=== PATIENT | female | born 1950 | race Caucasian/White ===

== ENCOUNTER → 2019-04-11 14:38 | Outpatient (CLI) | payer MEDICARE, SELFPAY ==
--- NOTE | 2019-04-11 | DI.ECHO.S_ITS ---
[place] +---------+ [facility] +---------+ : : [address] : : : [address] : : : : [id number] : : : : Phone: [phone]+ Echocardiogram Report + + :Name: NESTOR HOWELL Study Date: 04/11/2019 Height: 66 in : :[facility] Exam Location: IS Weight: 225 lb : : Gender: Female BSA: 2.1 m2 : :: 1950 Age: 68 yrs BP: 166/85 mmHg: :Reason For Study: MURMUR : : Performed By: Garfield Lopez : :Referring: TAMARA REHMAN A : + + Interpretation Summary Normal sinus rhythm. Normal LV size, wall thickness. There is subtle mid-inferolateral and mid- inferior hypokinesis, which in the right clinical setting could be due to either small area of ischemia or small prior infact. Preserved EF with ejection fraction of 60-65%. Moderate LA enlargement. Otherwise normal chamber sizes. Aortic sclerosis (epsecially involving thickened non-coronary leaflet of the aortic valve). There is mild aortic stenosis and mild associated aortic regurgitation. Otherwise no significant valvular abnormalities. No prior study available for comparison. Procedure: A two-dimensional transthoracic echocardiogram with color flow and Doppler was performed. The study quality was technically adequate. There is no prior echocardiogram noted for this patient. The patient was in normal sinus rhythm during the exam. Left Ventricle: The left ventricle is normal in size. There is normal left ventricular wall thickness. The ejection fraction is estimated to be 60-65%. Diastolic parameters suggest a pseudonormalization pattern, consistent with probable elevated filling pressures. Right Ventricle: The right ventricle is normal in size and function. Atria: The left atrium is moderately dilated. Right atrial size is normal. The interatrial septum is intact with no evidence for an atrial septal defect. Mitral Valve: The mitral valve is normal in structure and function. There is mild mitral regurgitation. Aortic Valve: The aortic valve is trileaflet. The aortic valve is mildly calcified. The aortic valve opens well. There is mild aortic stenosis. There is mild aortic regurgitation. Tricuspid Valve: The tricuspid valve is normal in structure and function. No tricuspid regurgitation. Pulmonary artery pressures cannot be estimated because of the lack of a measurable TR jet velocity. Pulmonic Valve: The pulmonic valve is normal in structure and function. There is no pulmonic valvular regurgitation. Great Vessels: The aortic root is normal size. The dimensions of the ascending aorta are normal. The pulmonary artery is normal size. The IVC is dilated (diameter is greater than 2.1 cm) yet it collapses greater than 50% with a sniff. This suggests a right atrial pressure of 8 mm Hg. Pericardium/ Pleura There is no pericardial effusion. There is no pleural effusion. MMode/2D Measurements & Calculations LVIDd: 5.0 cm LVOT diam: 2.1 cm LVIDs: 3.1 cm Ao root diam: 3.0 cm FS: 36.4 % Aortic Jxn: 2.6 cm EPSS: 0.27 cm asc Aorta Diam: 3.2 cm IVSd: 0.73 cm Ao Arch Diam (Prox Trans): 2.6 cm LVPWd: 0.68 cm LV soares. diameter/BSA (cm/m^2): 2.4 LV sys. diameter/BSA (cm/m^2): 1.5 LA dimension: 3.9 cm RA long axis: 5.7 cm LA A2 area: 25.2 cm2 RA area: 20.4 cm2 LA A4 area: 25.9 cm2 RA vol: 62.5 ml LA length (vol): 5.6 cm RA : 29.7 ml/m2 LA vol: 99.3 ml IVC diam: 2.6 cm LA vol index: 47.2 ml/m2 Doppler Measurements & Calculations Ao V2 max: 210.2 cm/sec LVOT Max Cam: 111.1 cm/sec Ao V2 mean: 150.4 cm/sec LV V1 max P.9 mmHg Ao max P.7 mmHg LV V1 VTI: 28.3 cm Ao mean P.8 mmHg IDALIA(I,D): 1.9 cm2 Ao V2 VTI: 50.9 cm IDALIA(V,D): 1.8 cm2 sev ratio: 0.56 IDALIA indexed to BSA (cm^2/m^2): 0.92 AI P1/2t: 697.7 msec AI dec slope: 173.7 cm/sec2 MV E max cam: 91.9 cm/sec PA V2 max: 100.0 cm/sec MV A max cam: 84.9 cm/sec PA V2 mean: 66.8 cm/sec MV E/A: 1.1 PA mean P.0 mmHg Med Peak E' Cam: 6.9 cm/sec PA pr(Accel): 39.1 mmHg E/E' med: 13.3 PA Accel Time: 0.09 sec Lat Peak E' Cam: 6.3 cm/sec E/E' lat: 14.6 E/e' average: 13.9 MV dec time: 0.18 sec SV(LVOT): 98.5 ml Electronically signed by: Jazzmine Pete M.D. on Reading Physician:04/12/2019 03:17 PM
== END ==
PROVIDERS: PCP Family Medicine; Visit Provider Family Medicine
DX: I08.0 Rheumatic disorders of both mitral and aortic valves (principal); R01.1 Cardiac murmur, unspecified
CPT/HCPCS: 93306

== ENCOUNTER → 2019-05-16 07:42 | Outpatient (CLI) | payer MEDICARE, SELFPAY ==
--- NOTE | 2019-05-16 | DI.NM.S_ITS ---
PROCEDURE: NM [place] PERF SPECT R&S PHARM Rest and pharmacological stress myocardial perfusion SPECT with gated imaging and ejection fraction RADIOPHARMACEUTICAL: 26.2 mCi Tc-99m tetrafosmin IV at rest and 25.1 mCi Tc-99m tetrafosmin IV at peak effect of pharmacological stress. [id number] was performed. INDICATIONS: ABNORMAL ECHOCARDIOGRAM TECHNIQUE: Radiopharmaceutical was injected at peak stress test, and also at rest. SPECT images were obtained. SPECT myocardial perfusion images were displayed in short axis, horizontal long axis, and vertical long axis views. Gated images were reviewed using ArmorText software. COMPARISON: None. CARDIAC STRESS: A pharmacologic stress test was performed under the supervision of an attending staff, using an infusion of lexiscan 0.4mg IV X1. Hemodynamic data: There is normal blood pressure and heart rate response to pharmacologic stress. Symptoms: The patient denied anginal chest pain. Aminophylline: none EKG: No diagnostic changes of ischemia; no ectopy. FINDINGS: Raw data: There is good myocardial uptake of radiotracer. No significant motion artifacts. Mddi-xk-wmtqi ratio is 0.45 (normal is less than 0.38 for tetrafosmin tracer). Left ventricle function: Gated images demonstrate normal left ventricular wall thickening. No segmental wall motion abnormalities. No transient ischemic dilation; TID is 1.03 (normal less than 1.3). Left ventricle resting end diastolic volume is 127 mL. Left ventricle stress ejection fraction is 73%; normal range is above 45%. Myocardial perfusion: There is normal distribution of activity in the right and left ventricular myocardium. No fixed or reversible perfusion defects. IMPRESSION: Low risk, normal pharmaceutical nuclear stress test. 1) No perfusion evidence of ischemia or infarction. 2) Normal left ventricular size, wall motion, and systolic function (EF post stress 73%). 3) No ECG evidence of ischemia. 4) No angina during the study. 5) No prior nuclear stress test available for comparison. Dictated by: Tino Meyers MD on 05/19/2019 at 14:57 Approved by: Tino Meyers MD on 05/19/2019 at 14:59
--- NOTE | 2019-05-16 08:46 | P.PCN_ITS ---
Cardiac Stress Test Report Referral & Results Date Patient Seen: 05/16/19 Time Patient Seen: 08:30 Requesting provider: Yesenia Herrera Indication: Ebnormal EKG Rest ECG: NSR Procedure Note: After both written and verbal informed consent the patient had an IV started by the diagnostic imaging RN and then was hooked up to the treadmill monitoring system. The patient was placed on the treadmill at 1 mile an hour with no elevation and was then injected with the Aaliyah scan material. The Cardiolite was then immediately administered. The patient spent an additional 2-3 minutes on the treadmill before being returned to the [facility] in the supine position. The patient had a normal response to all infused materials. No EKG changes. No exercise limiting symptoms. Impression: Successful Aaliyah protocol. Will await perfusion imaging. Please note: Actual ECG tracings can be found in the PACS system.
== END ==
PROVIDERS: PCP Family Medicine; Visit Provider Family Medicine
DX: R93.1 Abnormal findings on diagnostic imaging of heart and coronary circulation (principal)
CPT/HCPCS: 78452; 93016; 93017; 93018; A9502; J2785

== ENCOUNTER → 2019-08-08 10:51 | Outpatient (CLI) | payer MEDICARE, SELFPAY ==
--- NOTE | 2019-08-08 | DI.CT.S_ITS ---
PROCEDURE: CT CHEST WO CON INDICATIONS: SOB/COUGH TECHNIQUE: Noncontrast 5 mm thick sections acquired from the pulmonary apices to the posterior costophrenic angles. 1 mm lung window, 5 mm thick coronal and sagittal and 7 mm axial MIP reformats were then acquired. For radiation dose reduction, the following was used: automated exposure control, adjustment of mA and/or kV according to patient size. COMPARISON: None. FINDINGS: Image quality: Excellent. Lungs and pleura: No acute air space opacities. No pleural effusions or pneumothorax. Central and peripheral airways are patent and normal in caliber. Mediastinum: Heart size is normal. No pericardial effusion. No mediastinal adenopathy by size criteria. Thoracic aorta and central pulmonary arteries are normal in size. Esophagus is normal in caliber. No hiatal hernia. Bones and chest wall: No suspicious bony lesions. No vertebral body compression fractures. No axillary or supraclavicular adenopathy by size criteria. Thyroid gland appears asymmetrically more prominent in size on the right than the left but this is at the uppermost imaging margin and the patient is tilted somewhat rightward possibly accentuating the contiguous venous structures as a result. The study is performed without contrast and therefore tissue planes are not well visualized in that area. Abdomen: Visualized upper abdominal solid organs and bowel loops appear normal in the absence of contrast. IMPRESSION: 1. Source of persistent cough is not seen. No underlying pneumonia is found nor is there an identified endobronchial mass or pulmonary malignancy. 2. The right thyroid gland area appears somewhat larger than that on the left but this is in the setting of a noncontrast CT technique which does not allow clear visualization of portions of the tissue planes in that area. The patient is mildly tilted rightward also, which may accentuate the venous structures in this area. If clinically desired a followup elective thyroid ultrasound could be obtained. Dictated by: Saran Hart M.D. on 08/08/2019 at 12:15 Approved by: Saran Hart M.D. on 08/08/2019 at 12:20
== END ==
PROVIDERS: PCP Family Medicine; Visit Provider Family Medicine
DX: R06.02 Shortness of breath (principal); R05 Cough
CPT/HCPCS: 71250

== ENCOUNTER 2023-08-28 12:20 | Day surgery (SDC) | payer MEDICARE, OTHER, SELFPAY ==
--- NOTE | 2023-08-28 | PATH_ITS ---
[facility] Accession Number: [id number] No. of containers..01 Tissue . 01 Material submitted: . colon - SIGMOID COLON POLYP . 01 Diagnosis: COLON, SIGMOID, POLYP BIOPSY: - HYPERPLASTIC POLYP AND BENIGN COLONIC MUCOSA FRAGMENTS WITH BENIGN LYMPHOID AGGREGATES. - NEGATIVE FOR DYSPLASIA. TXN 09/04/2023 1035 Local . 01 Electronically signed: . Taaline Gonzalez MD, Pathologist NPI- [id number] . 01 Gross description: . SIGMOID COLON POLYP: Received in formalin is 3 fragment(s) of pang, soft tissue measuring 0.3 x 0.3 x 0.2 cm to 0.3 x 0.2 x 0.2 cm submitted entirely in 1 cassette(s) /AAY 08/30/2023 0059 Local . 01 Pathologist provided ICD-10: Z12.11 . 01 CPT . 237199 Specimen Comment: A courtesy copy of this report has been sent to [phone] Performed at: 01 [facility] [address] [place] [address], [place], [place] [id number] MD Antelmo Sinha MD Phone: [phone]
[2023-08-28] MEDS: LACTATED RINGERS 1,000 ML 42 ML IV (12:36)
[2023-08-28 12:54] VITALS: BMI 25.8
[2023-08-28 12:58] VITALS: BP 139/95; PULSE 61; RESP 17; TEMP 36.6; O2SAT 100
--- NOTE | 2023-08-28 13:11 | P.HP_ITS ---
History of Present Illness History of Present Illness Date Patient Seen: 08/28/23 Time Patient Seen: 13:11 [place] complaint: [facility] [place]ative: 73-year-old woman here for screening colonoscopy. No prior colonoscopy. No family history of intestinal malignancy. No abdominal concerns today including pain, unintentional weight loss, blood per rectum. FOR[facility]LY [facility], [facility] Social History household members: spouse Smoking Status: Former smoker alcohol intake: current Meds Home Medications and Allergies Home Medications Medication Instructions Recorded Confirmed Type ibuprofen 200 mg tablet 200 mg PO PRN PRN pain ##0 06/11/17 08/28/23 History aspirin 81 mg chewable tablet 1 tab PO BID #60 tabs 06/29/17 08/28/23 Rx bupropion HCl 150 mg 24 hr tablet, 150 mg PO QAM 08/28/23 08/28/23 History extended release lisinopril 5 mg tablet 5 mg PO DAILY 08/28/23 08/28/23 History Allergies Allergy/AdvReac Type Severity Reaction Status Date / Time No Known Allergies Allergy Uncoded 08/28/23 12:40 Exam Vital Signs (past 8 hours): - 08/28/23 12:58 Temperature 97.8 F Pulse Rate 61 Respiratory Rate 17 Blood Pressure 139/95 H Pulse Oximetry 100 Oxygen Delivery Method Room Air Oxygen Delivery Method Room Air Narrative Exam Narrative: General adult woman alert oriented no acute distress Chest nonlabored respiration Extremities warm well perfused Assessment & Plan Assessment & Plan narrative: The patient requires colorectal screening and colonoscopy is recommended. Technical details were discussed. Risks, benefits, alternatives explained. Risks including but not limited to myocardial infarction, aspiration, bleeding, pain, missed lesion, incomplete examination, need for further radiographic studies, colonic perforation, and need for major abdominal surgery were discussed. All questions were answered to their satisfaction, and they are in agreement with this plan.
--- NOTE | 2023-08-28 13:13 | P.OP.COLON_ITS ---
Operative Date/Time/Diagnoses Date of procedure: 08/28/23 Time of procedure: 13:13 Pre-op diagnosis: Colorectal screening Procedure & Clinicians Study performed: Colonoscopy Same procedure as scheduled: Yes Indications: Colorectal screening Surgeon: Darryl Purdy Procedure Notes Procedure in detail: The history and physical was performed/updated and the patient is ASA class is 2. The procedure was discussed in detail with the patient. Potential risks complications including infection, bleeding, missed diagnosis, perforation, need for surgery, and were explained. Their questions were answered and informed consent was obtained. Patient was brought to the procedure room and placed standard monitoring equipment. The patient's vital signs were monitored continuously throughout the entire procedure. Prior to starting time-out was performed. The patient was placed in the left lateral recumbent position. Procedural sedation was administered by anesthesia. Examination began with a thorough inspection of the perianal area there was no evidence of fissures, fistulae, external hemorrhoids or cutaneous malignancy. The colonoscopy scope was then placed into the anal canal and was advanced to the cecum, which was identified by the ileocecal valve , the appendiceal orifice and the confluence of the taenia. The scope was then slowly withdrawn examining colon thoroughly in all directions, irrigating it of any residual stool. The scope was retroflexed within the rectum The patient tolerated the procedure well. They will be discharged once criteria are met. The prep was of good/excellent quality. The withdrawl time was 6 minutes. FINDINGS * Sigmoid- 2 mm polyp removed with biopsy forceps. Specimen(s): other (Sigmoid polyp) Impression: Colonic polyp x1 Post-procedure Plan for aftercare: Follow-up is dependent on pathology findings. Likely no further colonoscopy necessary unless symptomatic Disposition: same day surgery
[2023-08-28 13:38] VITALS: BP 119/74; PULSE 78; RESP 20; TEMP 36.3; O2SAT 95
[2023-08-28 13:43] VITALS: BP 124/75; PULSE 65; RESP 16; O2SAT 97
[2023-08-28 13:48] VITALS: BP 129/74; PULSE 63; RESP 20; O2SAT 98
[2023-08-28 13:53] VITALS: BP 143/81; PULSE 60; RESP 12; TEMP 36.3; O2SAT 97
[2023-08-28 14:00] VITALS: BP 155/84; PULSE 57; RESP 14; TEMP 36.9; O2SAT 97
== END 2023-08-28 14:16 | disposition home or self-care (01) ==
PROVIDERS: PCP Family Medicine; Referring Provider Surgery; Visit Provider Surgery
PROC: 0DJD8ZZ Inspection of Lower Intestinal Tract, Via Natural or Artificial Opening Endoscopic (ICD-10-PCS; CPT 45378; principal; 2023-08-28 13:15)
DX: Z12.11 Encounter for screening for malignant neoplasm of colon (principal); K63.5 Polyp of colon
CPT/HCPCS: 45380; J2704

== ENCOUNTER 2024-05-20 07:53 | Day surgery (SDC) | payer MEDICARE, OTHER, SELFPAY ==
[2024-05-14 13:28] VITALS: BMI 27.1
[2024-05-20] MEDS: LACTATED RINGERS 1,000 ML 42 ML IV (08:19)
[2024-05-20] MEDS: ACETAMINOPHEN 325 MG TABLET 975 MG PO (08:19)
[2024-05-20 08:21] VITALS: BP 143/81; PULSE 83; RESP 18; TEMP 37.1; O2SAT 98; BMI 25.3
--- NOTE | 2024-05-20 08:32 | PM.HP.1 ---
History of Present Illness History of Present Illness Date Patient Seen: 05/20/24 Time Patient Seen: 08:32 Chief complaint: [facility] [place]ative: Deborah is a 73-year-old woman who presents with a left inguinal and umbilical hernia. See the office note from March for details. [facility] Medical History (Updated 04/02/24 @ 11:06 by Geo Duarte RN) Aortic stenosis Aortic valve sclerosis Depression Dyslipidemia Hypertension Chronic cough Surgical History (Updated 05/14/24 @ 13:31 by Dayan Diamond RN) Hx of colonoscopy (08/28/23) Social History household members: spouse Smoking Status: Former smoker alcohol intake: current Meds Home Medications and Allergies Home Medications Medication Instructions Recorded Confirmed Type aspirin 81 mg chewable tablet 1 tab PO BID #60 tabs 06/29/17 04/02/24 Rx lisinopril 5 mg tablet 5 mg PO DAILY 08/28/23 04/02/24 History bupropion HCl 150 mg 24 hr tablet, 300 mg PO QAM 04/02/24 04/02/24 History extended release semaglutide 0.25 mg or 0.5 mg (2 0.25 mg SUBCUT QWEEK 04/02/24 04/02/24 History mg/3 mL) subcutaneous pen injector (Ozempic) Allergies Allergy/AdvReac Type Severity Reaction Status Date / Time No Known Allergies Allergy Uncoded 05/20/24 08:10 Exam Narrative Exam Narrative: Left inguinal hernia Umbilical hernia Assessment & Plan Assessment and plan (1) Left inguinal hernia: Status: Acute Plan We will proceed with a laparoscopic left, possible right hernia repair with mesh and we will fix the umbilical hernia primarily. Time-Based Coding :: [TOTAL MINUTES] spent with patient and on the chart (including review of chart, obtaining history, exam, reviewing outside data, placing orders, documenting exam and treatment plan, and counseling patient) on [DATE].
[2024-05-20 08:34] VITALS: BMI 25.3
== END 2024-05-20 07:55 | disposition home or self-care (01) ==
LOC: OR 07:54
PROVIDERS: PCP Nurse Practitioner; Referring Provider Surgery; Visit Provider Surgery
DX: K40.90 Unilateral inguinal hernia, without obstruction or gangrene, not specified as recurrent (principal); Z53.09 Procedure and treatment not carried out because of other contraindication
CPT/HCPCS: 49650; J1100; J1885; J2250; J2405; J2704; J3010

== ENCOUNTER → 2024-07-02 12:19 | Outpatient (CLI) | payer MEDICARE, OTHER, SELFPAY ==
--- NOTE | 2024-07-02 12:21 | DI.ECHO.S_ITS ---
[place] +---------+ Hospital : : [address] : : [place] : : [id number] : : Phone: [phone] Echocardiogram Report + + :Name: NESTOR HOWELL Study Date: 07/02/2024 Height: 66 in : :[facility] ReadingLocation: Weight: 157 lb : : Gender: Female BSA: 1.8 m2 : :: 1950 Age: 74 yrs BP: 148/81 mmHg: :Reason For Study: HEART MURMUR : :Ordering Physician: SALLY, : :NORMA Performed By: Lliliana Can : :Referring: NORMA ZAVALA : + + Interpretation Summary The left ventricle is normal in size and wall thickness. The ejection fraction is estimated to be 60-65%. The right ventricle is normal in size and function. There is mild mitral regurgitation. The aortic valve is severely calcified. Aortic valve not well-visualized however cannot rule out bicuspid aortic valve. The peak aortic velocity is 3.6 m/sec. The aortic valve mean gradient is 31 mmHg. The calculated aortic valve area is 0.82 cm2. sev ratio: 0.28 Stroke-volume index 36.38 mL/mA?. There is moderate to severe aortic stenosis. There is mild aortic regurgitation. The IVC is dilated (diameter is greater than 2.1 cm) yet it collapses greater than 50% with a sniff. This suggests a right atrial pressure of 8 mm Hg. Procedure: A two-dimensional transthoracic echocardiogram with color flow and Doppler was performed. The study quality was technically adequate. Comparison is made with the echocardiogram of 04/11/2019. The patient was in sinus rhythm with heart rates between 59-62 bpm during the exam. Left Ventricle: The left ventricle is normal in size and wall thickness. There is no thrombus. The left ventricular ejection fraction is normal. The ejection fraction is estimated to be 60-65%. There are no focal wall motion abnormalities. Diastolic parameters suggest a relaxation abnormality of the left ventricle, consistent with probable normal filling pressures. Right Ventricle: The right ventricle is normal in size and function. Atria: The left atrial size is normal. The right atrium is normal in size. There is no Doppler evidence for an interatrial shunt. Mitral Valve: The mitral valve leaflets appear mildly thickened, but open well. There is mild mitral annular calcification. There is mild mitral regurgitation. Aortic Valve: The aortic valve is severely calcified. Aortic valve not well- visualized however cannot rule out bicuspid aortic valve. There is moderate to severe aortic stenosis. The peak aortic velocity is 3.6 m/sec. The aortic valve mean gradient is 31 mmHg. The calculated aortic valve area is 0.82 cm2. There is mild aortic regurgitation. Tricuspid Valve: The tricuspid valve is normal in structure and function. There is trace tricuspid regurgitation. Pulmonary artery pressures cannot be estimated because of the lack of a measurable TR jet velocity. Pulmonic Valve: The pulmonic valve is not well visualized. There is no pulmonic valvular regurgitation. Great Vessels: The aortic root is normal size. The dimensions of the ascending aorta are normal. The IVC is dilated (diameter is greater than 2.1 cm) yet it collapses greater than 50% with a sniff. This suggests a right atrial pressure of 8 mm Hg. Pericardium/ Pleura There is no pericardial effusion. There is no pleural effusion. MMode/2D Measurements & Calculations LVIDd: 4.8 cm LVOT diam: 2.0 cm LVIDs: 3.3 cm Ao root diam: 3.0 cm FS: 31.1 % asc Aorta Diam: 2.6 cm IVSd: 0.92 cm Ao Arch Diam (Prox Trans): 2.8 cm LVPWd: 0.91 cm LV osares. diameter/BSA (cm/m^2): 2.7 LV sys. diameter/BSA (cm/m^2): 1.8 LA A2 area: 17.9 cm2 RA long axis: 4.8 cm LA A4 area: 15.8 cm2 RA area: 14.1 cm2 LA length (vol): 4.7 cm RA vol: 35.1 ml LA vol: 50.7 ml RA : 19.5 ml/m2 LA vol index: 28.1 ml/m2 IVC diam: 2.3 cm RVD1 (basal): 3.3 cm RVD2 (mid): 2.5 cm TAPSE: 2.5 cm Doppler Measurements & Calculations Ao V2 max: 355.3 cm/sec LVOT Max Cam: 94.6 cm/sec Ao V2 mean: 247.5 cm/sec LV V1 max P.6 mmHg Ao max P.4 mmHg LV V1 VTI: 22.8 cm Ao mean P.1 mmHg IDALIA(I,D): 0.86 cm2 Ao V2 VTI: 81.1 cm IDALIA(V,D): 0.82 cm2 sev ratio: 0.28 IDALIA indexed to BSA (cm^2/m^2): 0.48 AI P1/2t: 745.6 msec AI dec slope: 154.7 cm/sec2 MV E max cam: 65.3 cm/sec PA V2 max: 102.5 cm/sec MV A max cam: 85.5 cm/sec PA V2 mean: 75.9 cm/sec MV E/A: 0.76 PA mean P.5 mmHg Med Peak E' Cam: 5.7 cm/sec PA pr(Accel): 39.6 mmHg E/E' med: 11.4 Lat Peak E' Cam: 7.3 cm/sec E/E' lat: 9.0 E/e' average: 10.2 MV dec time: 0.28 sec SV(LVOT): 69.8 ml Reading Physician:10:25 AM
== END ==
PROVIDERS: PCP Nurse Practitioner; Referring Provider Nurse Practitioner; Visit Provider Nurse Practitioner
DX: R01.1 Cardiac murmur, unspecified (principal); I34.0 Nonrheumatic mitral (valve) insufficiency; I70.0 Atherosclerosis of aorta; I35.1 Nonrheumatic aortic (valve) insufficiency; I35.0 Nonrheumatic aortic (valve) stenosis
CPT/HCPCS: 93306

== ENCOUNTER → 2025-04-01 11:41 | Outpatient (CLI) | payer MEDICARE, OTHER, SELFPAY ==
--- NOTE | 2025-04-01 11:46 | DI.ECHO.S_ITS ---
[facility] : : [id number] : : [place] : : [id number] : : Phone: [phone] Echocardiogram Report + + :Name: NESTOR HOWELL Study Date: 04/01/2025 Height: 66 in : :[facility] ReadingLocation: Weight: 166 lb : : Gender: Female BSA: 1.8 m2 : :: 1950 Age: 74 yrs BP: 137/84 mmHg: :Reason For Study: AORTIC VALVE STENOSIS : :Ordering Physician: ZA, : :JULIO Performed By: Lilliana Can : :Referring: JULIO MENDENHALL : + + Interpretation Summary Normal sinus rhythm. Normal LV size and wall thickness. Normal wall motion and LV systolic function. Ejection fraction of 60-65%. Mild LA enlargement; otherwise normal chamber sizes Aortic valve is a trileaflet structure characterized by severely thickened and calcified leaflets with moderately reduced leaflet excursion. There is moderate aortic stenosis and mild associated aortic regurgitation. Noncoronary and left coronary leaflets appear to be partially fused. As far as aortic regurgitation, pressure half-time is 682 ms. As far as aortic stenosis peak velocity is 3.5 m/s and mean gradient is 30 mmHg. Otherwise no significant valvular abnormalities. Compared to prior echo in June 2024, aortic stenosis is stable. No significant changes have occurred. Procedure: A two-dimensional transthoracic echocardiogram with color flow and Doppler was performed. The study quality was technically adequate. Comparison is made with the echocardiogram of 07/02/2024. The patient was in sinus rhythm with heart rates between 58-64 bpm during the exam. Left Ventricle: The left ventricle is normal in size and wall thickness. The ejection fraction is estimated to be 60-65%. Right Ventricle: The right ventricle is normal in size and function. Atria: The left atrium is mildly dilated. Right atrial size is normal. There is no Doppler evidence for an interatrial shunt. Mitral Valve: The mitral valve leaflets appear mildly thickened, but open well. There is mild mitral annular calcification. There is mild mitral regurgitation. Aortic Valve: The aortic valve is severely calcified. There is moderately reduced leaflet mobility. The peak aortic velocity is 3.6 m/sec. The aortic valve mean gradient is 31 mmHg. The calculated aortic valve area is 0.94 cm2. There is mild aortic regurgitation. Tricuspid Valve: The tricuspid valve leaflets are thin and pliable. There is trace tricuspid regurgitation. Pulmonary artery pressures cannot be estimated because of the lack of a measurable TR jet velocity but the IVC suggests a CVP of around 3 mmHg. Pulmonic Valve: The pulmonic valve is not well visualized. There is no pulmonic valvular regurgitation. Great Vessels: The aortic root is normal size. The ascending aorta could not be visualized. The IVC is of normal diameter and collapses greater than 50% with a sniff. This suggests a low right atrial pressure of 3 mm Hg. Pericardium/ Pleura There is no pericardial effusion. There is no pleural effusion. MMode/2D Measurements & Calculations LVIDd: 5.1 cm LVOT diam: 2.0 cm LVIDs: 3.2 cm Ao root diam: 3.3 cm FS: 36.7 % Ao Arch Diam (Prox Trans): 3.4 cm IVSd: 0.74 cm LVPWd: 0.71 cm LV soares. diameter/BSA (cm/m^2): 2.7 LV sys. diameter/BSA (cm/m^2): 1.7 LA A2 area: 22.3 cm2 RA long axis: 4.8 cm LA A4 area: 16.4 cm2 RA area: 14.1 cm2 LA length (vol): 4.8 cm RA vol: 34.9 ml LA vol: 64.2 ml RA : 18.9 ml/m2 LA vol index: 34.8 ml/m2 IVC diam: 1.6 cm RVD1 (basal): 3.2 cm RVD2 (mid): 2.9 cm TAPSE: 2.3 cm Doppler Measurements & Calculations Ao V2 max: 359.4 cm/sec LVOT Max Cam: 104.5 cm/sec Ao V2 mean: 255.4 cm/sec LV V1 max P.4 mmHg Ao max P.7 mmHg LV V1 VTI: 27.9 cm Ao mean P.0 mmHg IDALIA(I,D): 1.0 cm2 Ao V2 VTI: 86.3 cm IDALIA(V,D): 0.94 cm2 sev ratio: 0.32 IDALIA indexed to BSA (cm^2/m^2): 0.56 AI P1/2t: 688.6 msec AI dec slope: 141.2 cm/sec2 MV E max cam: 73.9 cm/sec PA V2 max: 93.5 cm/sec MV A max cam: 89.8 cm/sec PA V2 mean: 69.2 cm/sec MV E/A: 0.82 PA mean P.0 mmHg Med Peak E' Cam: 8.2 cm/sec PA pr(Accel): 23.8 mmHg E/E' med: 9.0 Lat Peak E' Cam: 8.2 cm/sec E/E' lat: 9.0 E/e' average: 9.0 MV dec time: 0.19 sec SV(LVOT): 89.8 ml Electronically signed by: Julio Mendenhall M.D. on Reading Physician:04/03/2025 10:24 AM
== END ==
LOC: ECHO 11:45
PROVIDERS: PCP Nurse Practitioner; Referring Provider Internal Medicine; Visit Provider Internal Medicine
DX: I08.0 Rheumatic disorders of both mitral and aortic valves (principal)
CPT/HCPCS: 93306

== ENCOUNTER → 2025-05-06 08:33 | Outpatient (CLI) | payer MEDICARE, OTHER, SELFPAY ==
--- NOTE | 2025-05-06 08:34 | DI.NM.S_ITS ---
PROCEDURE: NM EXERCISE TREADMILL NON NUC COMPARISON: None. INDICATIONS: Nonrheumatic aortic valve stenosis FINDINGS: Rest ECG sinus rhythm, 64 bpm. Roly protocol 7:12, maximum heart rate 119 bpm (82% peak predicted), peak blood pressure 140/72, 10.1 METS, DELBERT -34%. Exercise ECG sinus tachycardia, no ST segment changes or arrhythmia. The patient did not report exercise-induced treadmill but was unable to achieve target heart rate due to dyspnea and inability to keep up with the treadmill. IMPRESSION: No evidence of exercise-induced ischemia at just under peak predicted heart rate. No evidence of exercise induced arrhythmia. Normal hemodynamic response. Very good exercise capacity. Dictated by: Deidre Henderson D.O. on 05/06/2025 at 16:44 Approved by: Deidre Henderson D.O. on 05/06/2025 at 16:49
== END ==
LOC: NUCM 08:34
PROVIDERS: PCP Nurse Practitioner; Referring Provider Internal Medicine; Visit Provider Internal Medicine
DX: I35.0 Nonrheumatic aortic (valve) stenosis (principal); R00.0 Tachycardia, unspecified
CPT/HCPCS: 93017